=== PATIENT | female | born 1990 | race Caucasian/White ===

== ENCOUNTER 2021-02-11 17:04 | Inpatient (IN) ==
[2021-02-11] MEDS ORDERED: ONDANSETRON 4 MG/2 ML VIAL IV PRN (17:24)
[2021-02-11] MEDS ORDERED: LACTATED RINGERS 1,000 ML IV SCH (17:30)
[2021-02-11] MEDS: miSOPROStoL 200 MCG TABLET PO SCH ×3 (17:31→23:48)
[2021-02-11 18:14] LABS: Basophils # 0.1 10*3/uL (0.0-0.2); Basophils % 0.4 % (0.0-0.8); Eosinophils # 0.1 10*3/uL (0.0-0.87); Eosinophils % 0.6 % (0.00-10.9); Hematocrit 36.5 VOL% (35.7-47.0); Immature Granulocytes % 0.4 %; Immature Granulocytes Absolute 0.05 #; Lymphocytes # 1.8 10*3/uL (1.4-4.0); Lymphocytes % 15.3 % (21.3-54.2); Mean Corpuscular HGB Conc 32.9 GM/DL (32-36); Mean Corpuscular Volume 97.9 FL (87-102); Mean Platelet Volume 11.9 FL (9.6-12.0); Monocytes % 6.1 % (1.7-12.7); Neutrophils % 77.2 % (38.7-73.9); Platelet Count 281 T/CUMM (130-400); Red Blood Count 3.73 MC/CUMM (3.8-5.5); Red Cell Distribution Width 12.2 % (9.3-17.3)
[2021-02-11] MEDS ORDERED: BUTORPHANOL 2 MG/ML VIAL IV PRN (18:16)
[2021-02-11 18:30] LABS: Alanine Aminotransferase 13 U/L (13-56); Albumin 3.1 G/DL (3.4-5.0); Alkaline Phosphatase 53 U/L (45-117); Aspartate Amino Transferase 14 U/L (0-37); Bilirubin,Total < 0.39 MG/DL (0.20-1.00); Blood Urea Nitrogen 9 MG/DL (7-18); Calcium 8.2 MG/DL (8.5-10.1); Carbon Dioxide 24 MMOL/L (21-32); Estimated Glom Filtration Rate 130 ML/MIN; Glucose 87 MG/DL (74-106); Osmolality,Calculated 274.5 MOS/KG (273-304); Potassium 3.7 MMOL/L (3.5-5.1); Sodium 139 MMOL/L (136-145); Total Protein 6.6 G/DL (6.4-8.2)
[2021-02-12] MEDS: miSOPROStoL 200 MCG TABLET PO SCH ×4 (02:25→14:24)
[2021-02-12] MEDS ORDERED: OXYTOCIN/LR 20 UNIT/1,000 ML BAG IV ONE ×2 (03:30→21:13)
[2021-02-12] MEDS: MEPERIDINE 50 MG/1 ML VIAL IV PRN ×2 (07:47→18:33)
[2021-02-12] MEDS ORDERED: ONDANSETRON 4 MG/2 ML VIAL IV ONE (12:05)
[2021-02-12] MEDS ORDERED: PROMETHAZINE 25 MG/1 ML VIAL IM ONE (12:05)
[2021-02-12] MEDS ORDERED: hydrOXYzine HCL 25 MG/1 ML VIAL IM PRN (12:05)
[2021-02-12] MEDS ORDERED: ePHEDrine 50 MG/ML VIAL IV PRN (12:05)
[2021-02-12] MEDS ORDERED: NALOXONE 0.4 MG/ML VIAL IV PRN (12:05)
[2021-02-12] MEDS ORDERED: CITRIC ACID/SODIUM CITRATE 30 ML UDCUP PO ONE (12:05)
[2021-02-12] MEDS ORDERED: FAMOTIDINE 20 MG/2 ML VIAL IV ONE (12:05)
[2021-02-12] MEDS ORDERED: diphenhydrAMINE 50 MG/1 ML VIAL IV PRN ×2 (12:05)
[2021-02-12] MEDS ORDERED: LACTATED RINGERS 1,000 ML IV SCH ×2 (12:30→20:30)
[2021-02-12] MEDS ORDERED: fentaNYL 2 MCG/ROPIV 0.2% EPID 100 ML EPIDURAL SCH (12:30)
[2021-02-12 15:13] LABS: Bilirubin,Urine Negative (Negative); Blood, Urine Negative (Negative); Glucose,Urine (UA) Negative (Negative); Ketones,Urine 20 mg/dL (Negative); Nitrite,Urine Negative (Negative); Protein,Urine Negative; RBC,Urine 1 /HPF (0-4); Squamous Epithelial Cell,Urine Occasional /HPF (0-10); Urine Appearance CLEAR (Clear); Urine Color Straw (Yellow); Urine Specific Gravity 1.009 (1.001-1.035); Urine Urobilinogen < 2.0 EU/DL (0.2-1.0)
[2021-02-12] MEDS ORDERED: ONDANSETRON 4 MG/2 ML VIAL ONE (18:43)
[2021-02-12] MEDS ORDERED: LIDOCAINE MPF 2% /EPI 20 ML VIAL ONE (18:43)
[2021-02-12] MEDS ORDERED: DEXAMETHASONE 4 MG/1 ML VIAL ONE (18:45)
[2021-02-12] MEDS ORDERED: MIDAZOLAM 2 MG/2 ML VIAL ONE ×2 (19:16)
[2021-02-12] MEDS ORDERED: DEXMEDETOMIDINE 200 MCG/2 ML VIAL ONE (19:16)
[2021-02-12] MEDS ORDERED: fentaNYL 100 MCG/2 ML VIAL ONE (19:17)
[2021-02-12] MEDS ORDERED: LACTATED RINGERS 1,000 ML IV ONE ×2 (19:25→20:08)
[2021-02-12] MEDS ORDERED: ACETAMINOPHEN INJ 1,000 MG/100 ML VIAL IV ONE (19:28)
[2021-02-12] MEDS ORDERED: OXYTOCIN 10 UNIT/ML VIAL ONE (19:48)
[2021-02-12] MEDS ORDERED: METHYLERGONOVINE 0.2 MG/1 ML AMP ONE (19:48)
[2021-02-12] MEDS ORDERED: CARBOPROST TROMETHAMINE 250 MCG/ML AMP IM ONE (19:54)
[2021-02-12] MEDS ORDERED: ESTRADIOL 0.01% VAG CREAM 42.5 GM TUBE VAG ONE (19:55)
[2021-02-12] MEDS ORDERED: ONDANSETRON 4 MG/2 ML VIAL IV PRN (20:10)
[2021-02-12] MEDS ORDERED: MAGNESIUM HYDROXIDE SUSP 30 ML UDCUP PO PRN (20:10)
[2021-02-12] MEDS ORDERED: BENZOCAINE/MENTHOL LOZENGE 18/BOX PO PRN (20:10)
[2021-02-12] MEDS ORDERED: BISACODYL 10 MG SUPP RECTAL PRN (20:10)
[2021-02-12] MEDS ORDERED: IBUPROFEN 800 MG TABLET PO PRN (20:10)
[2021-02-12] MEDS ORDERED: DOCUSATE SODIUM 100 MG CAPSULE PO PRN (20:10)
[2021-02-12] MEDS ORDERED: ACETAMINOPHEN 325 MG TABLET PO PRN (20:10)
[2021-02-12] MEDS ORDERED: oxyCODONE/ACETAMINOPHEN 5-325 MG TABLET PO PRN (20:11)
[2021-02-12 21:00] VITALS: BP 115/55
[2021-02-12] MEDS ORDERED: SODIUM BICARBONATE 10 MEQ/10 ML SYRINGE IV ONE (22:14)
[2021-02-13 11:55] LABS: Toxoplasma IgG Value < 3 IU/mL
== END 2021-02-13 11:09 | disposition home or self-care (01) | DRG 818 ==
LOC: N.LD 17:04
PROVIDERS: ADMIT Obstetrics & Gynecology; ATTEND Obstetrics & Gynecology

== ENCOUNTER 2021-12-28 09:36 | Inpatient (IN) ==
[2021-12-28 10:26] LABS: Bacteria,Urine Many /HPF (Few); RBC,Urine 2 /HPF (0-4); Squamous Epithelial Cell,Urine Occasional /HPF (0-10)
[2021-12-28 10:27] LABS: Bilirubin,Urine Negative (Negative); Blood, Urine Negative (Negative); Glucose,Urine (UA) Negative (Negative); Ketones,Urine Negative (Negative); Nitrite,Urine Negative (Negative); Protein,Urine Negative (Negative); Urine Appearance Clear (Clear); Urine Color Yellow (Yellow); Urine Specific Gravity 1.015 (1.001-1.035); Urine Urobilinogen 0.2 eU/dL (<2.0)
[2021-12-28] MEDS: LACTATED RINGERS 1,000 ML IV SCH ×2 (13:13→21:15)
[2021-12-28] MEDS ORDERED: METHYLERGONOVINE 0.2 MG/1 ML AMP IM PRN (13:21)
[2021-12-28] MEDS ORDERED: OXYTOCIN/LR 20 UNIT/1,000 ML BAG IV ONE (13:21)
[2021-12-28] MEDS ORDERED: miSOPROStoL 200 MCG TABLET RECTAL PRN (13:21)
[2021-12-28] MEDS ORDERED: TRANEXAMIC ACID 1,000 MG in SODIUM CHLORIDE 0.9% 100 ML IV PRN (13:21)
[2021-12-28] MEDS ORDERED: CARBOPROST TROMETHAMINE 250 MCG/ML AMP IM PRN (13:21)
[2021-12-28] MEDS ORDERED: OXYTOCIN/LR 20 UNIT/1,000 ML BAG IV SCH (13:30)
[2021-12-28 13:44] LABS: Basophils % 0.2 % (0.0-0.8); Eosinophils % 0.2 % (0.00-10.9); Hematocrit 33.5 VOL% (35.7-47.0); Hemoglobin 11.3 GM/DL (12.0-16.0); Immature Granulocytes % 1.2 %; Immature Granulocytes Absolute 0.15 #; Lymphocytes # 1.8 10*3/uL (1.4-4.0); Lymphocytes % 13.4 % (21.3-54.2); Mean Corpuscular HGB Conc 33.7 GM/DL (32-36); Mean Corpuscular Volume 95.7 FL (87-102); Monocytes # 0.6 10*3/uL (0.11-0.8); Monocytes % 4.8 % (1.7-12.7); Neutrophils % 80.2 % (38.7-73.9); Platelet Count 220 T/CUMM (130-400); Red Cell Distribution Width 13.5 % (9.3-17.3)
[2021-12-28 13:59] LABS: Alanine Aminotransferase 21 U/L (13-56); Albumin 2.7 G/DL (3.4-5.0); Alkaline Phosphatase 118 U/L (45-117); Aspartate Amino Transferase 17 U/L (0-37); Bilirubin,Total < 0.39 MG/DL (0.20-1.00); Blood Urea Nitrogen 6 MG/DL (7-18); Calcium 8.5 MG/DL (8.5-10.1); Carbon Dioxide 20 MMOL/L (21-32); Chloride 110 MMOL/L (98-107); Glucose 77 MG/DL (74-106); Osmolality,Calculated 277.3 MOS/KG (273-304); Potassium 3.7 MMOL/L (3.5-5.1); Sodium 141 MMOL/L (136-145); Total Protein 6.6 G/DL (6.4-8.2)
[2021-12-28] MEDS ORDERED: buprenorphine HCL 0.3 MG/ML VIAL ONE (17:31)
[2021-12-28] MEDS ORDERED: BUPIVACAINE SPINAL 0.75% 2 ML AMP SPINAL ONE (17:31)
[2021-12-28] MEDS ORDERED: ONDANSETRON 4 MG/2 ML VIAL ONE (17:31)
[2021-12-28] MEDS ORDERED: PHENYLEPHRINE 1 MG/10 ML SYRINGE IV ONE (17:31)
[2021-12-28] MEDS: MEPERIDINE 50 MG/1 ML VIAL IV PRN (21:14)
[2021-12-28] MEDS: ONDANSETRON 4 MG/2 ML VIAL IV PRN (21:15)
[2021-12-28] MEDS ORDERED: BUTORPHANOL 2 MG/ML VIAL IV PRN (23:41)
[2021-12-28] MEDS ORDERED: BUTORPHANOL 1 MG/ML VIAL IV PRN (23:41)
[2021-12-29] MEDS: ONDANSETRON 4 MG/2 ML VIAL IV PRN (02:13)
[2021-12-29] MEDS: MEPERIDINE 50 MG/1 ML VIAL IV PRN (02:14)
[2021-12-29] MEDS ORDERED: CITRIC ACID/SODIUM CITRATE 30 ML UDCUP ONE (04:04)
[2021-12-29] MEDS ORDERED: FAMOTIDINE 20 MG/2 ML VIAL IV ONE ×2 (04:05→04:18)
[2021-12-29] MEDS ORDERED: fentaNYL 2 MCG/ROPIV 0.2% EPID 100 ML EPIDURAL ONE (04:16)
[2021-12-29] MEDS ORDERED: PROMETHAZINE 25 MG/1 ML VIAL IM PRN (04:17)
[2021-12-29] MEDS ORDERED: hydrOXYzine HCL 25 MG/1 ML VIAL IM PRN ×2 (04:17)
[2021-12-29] MEDS ORDERED: ePHEDrine 50 MG/ML VIAL IV PRN ×2 (04:17)
[2021-12-29] MEDS ORDERED: NALOXONE 0.4 MG/ML VIAL IV PRN ×2 (04:17)
[2021-12-29] MEDS ORDERED: diphenhydrAMINE 50 MG/1 ML VIAL IV PRN ×4 (04:17)
[2021-12-29] MEDS ORDERED: ONDANSETRON 4 MG/2 ML VIAL IV ONE (04:17)
[2021-12-29] MEDS ORDERED: PROMETHAZINE 25 MG/1 ML VIAL IM ONE (04:17)
[2021-12-29] MEDS ORDERED: CITRIC ACID/SODIUM CITRATE 30 ML UDCUP PO ONE (04:18)
[2021-12-29] MEDS ORDERED: fentaNYL 2 MCG/ROPIV 0.2% EPID 100 ML EPIDURAL SCH (04:30)
[2021-12-29] MEDS: LACTATED RINGERS 1,000 ML IV SCH ×2 (04:36→12:47)
[2021-12-29] MEDS: fentaNYL 2 MCG/ROPIV 0.2% EPID 100 ML EPIDURAL SCH ×2 (04:59→12:05)
[2021-12-29 06:12] LABS: Mucus,Urine Few /LPF (Occasional); RBC,Urine 11 /HPF (0-4); Squamous Epithelial Cell,Urine Occasional /HPF (0-10)
[2021-12-29 06:13] LABS: Urine Appearance Clear (Clear); Urine Color Yellow (Yellow)
[2021-12-29 06:14] LABS: Bilirubin,Urine Small mg/dL (Negative); Blood, Urine Trace mg/dL (Negative); Glucose,Urine (UA) Negative (Negative); Ketones,Urine >160 mg/dL (Negative); Nitrite,Urine Negative (Negative); Protein,Urine Negative (Negative); Urine Specific Gravity 1.025 (1.001-1.035); Urine Urobilinogen 0.2 eU/dL (<2.0)
[2021-12-29] MEDS ORDERED: ceFAZolin 2,000 MG/50 ML DUPLEX IV ONE (10:20)
[2021-12-29] MEDS ORDERED: fentaNYL 100 MCG/2 ML VIAL ONE (11:11)
[2021-12-29] MEDS ORDERED: ONDANSETRON 4 MG/2 ML VIAL ONE (12:27)
[2021-12-29] MEDS ORDERED: LIDOCAINE MPF 2% /EPI 20 ML VIAL ONE (12:27)
[2021-12-29] MEDS ORDERED: OXYTOCIN/LR 20 UNIT/1,000 ML BAG IV ONE ×2 (13:04→14:16)
[2021-12-29] MEDS ORDERED: SODIUM CHLORIDE 0.9% 0 ML IV ONE (13:04)
[2021-12-29] MEDS ORDERED: TRANEXAMIC ACID 1,000 MG/10 ML VIAL ONE (13:04)
[2021-12-29] MEDS ORDERED: miSOPROStoL 200 MCG TABLET ONE (13:04)
[2021-12-29] MEDS ORDERED: METHYLERGONOVINE 0.2 MG/1 ML AMP ONE (13:04)
[2021-12-29] MEDS ORDERED: CARBOPROST TROMETHAMINE 250 MCG/ML AMP IM ONE (13:04)
[2021-12-29] MEDS ORDERED: KETOROLAC 30 MG/1 ML VIAL ONE (13:32)
[2021-12-29] MEDS ORDERED: buprenorphine HCL 0.3 MG/ML VIAL ONE (13:37)
[2021-12-29 13:49] LABS: Cord Venous Blood HCO3 22.5 MMOL/L; Cord Venous Blood PCO2 38.7 MMHG; Cord Venous Blood PO2 37.9
[2021-12-29] MEDS ORDERED: PHENYLEPHRINE 1 MG/10 ML SYRINGE IV ONE (14:05)
[2021-12-29] MEDS ORDERED: ACETAMINOPHEN 325 MG TABLET PO PRN (14:16)
[2021-12-29] MEDS ORDERED: MAGNESIUM HYDROXIDE SUSP 30 ML UDCUP PO PRN (14:16)
[2021-12-29] MEDS ORDERED: SIMETHICONE CHEW 80 MG TABLET PO PRN (14:16)
[2021-12-29] MEDS ORDERED: RHO(D) IMMUNE GLOBULIN 300 MCG SYRINGE IM ONE (14:16)
[2021-12-29] MEDS ORDERED: ONDANSETRON 4 MG/2 ML VIAL IV PRN (14:16)
[2021-12-29] MEDS ORDERED: LACTATED RINGERS 1,000 ML IV SCH (14:30)
[2021-12-29] MEDS: oxyCODONE/ACETAMINOPHEN 5-325 MG TABLET PO PRN (18:21)
[2021-12-29] MEDS: DOCUSATE SODIUM 100 MG CAPSULE PO SCH (21:18)
[2021-12-29] MEDS: KETOROLAC 30 MG/1 ML VIAL IV SCH (21:19)
[2021-12-30] MEDS: KETOROLAC 30 MG/1 ML VIAL IV SCH ×2 (02:05→08:27)
[2021-12-30] MEDS: ACETAMINOPHEN 500 MG TABLET PO SCH ×2 (02:06→05:09)
[2021-12-30 05:13] LABS: Basophils # 0.1 10*3/uL (0.0-0.2); Basophils % 0.5 % (0.0-0.8); Eosinophils # 0.1 10*3/uL (0.0-0.87); Eosinophils % 0.7 % (0.00-10.9); Hematocrit 28.5 VOL% (35.7-47.0); Hemoglobin 9.2 GM/DL (12.0-16.0); Immature Granulocytes % 0.8 %; Immature Granulocytes Absolute 0.08 #; Lymphocytes # 1.9 10*3/uL (1.4-4.0); Lymphocytes % 19.6 % (21.3-54.2); Mean Corpuscular HGB Conc 32.3 GM/DL (32-36); Mean Corpuscular Volume 100.4 FL (87-102); Mean Platelet Volume 12.1 FL (9.6-12.0); Monocytes # 0.8 10*3/uL (0.11-0.8); Monocytes % 7.8 % (1.7-12.7); Neutrophils % 70.6 % (38.7-73.9); Platelet Count 176 T/CUMM (130-400); Red Blood Count 2.84 MC/CUMM (3.8-5.5); Red Cell Distribution Width 13.7 % (9.3-17.3); White Blood Count 9.6 T/CUMM (4-12)
[2021-12-30] MEDS: oxyCODONE/ACETAMINOPHEN 5-325 MG TABLET PO PRN ×3 (05:21→20:11)
[2021-12-30] MEDS: MULTIVITAMIN (PRENATAL) TABLET PO SCH (08:27)
[2021-12-30] MEDS: DOCUSATE SODIUM 100 MG CAPSULE PO SCH ×2 (08:28→21:00)
[2021-12-30] MEDS: IBUPROFEN 800 MG TABLET PO PRN (23:31)
[2021-12-31] MEDS: IBUPROFEN 800 MG TABLET PO PRN ×3 (06:55→22:04)
[2021-12-31] MEDS: DOCUSATE SODIUM 100 MG CAPSULE PO SCH ×2 (10:14→21:58)
[2021-12-31] MEDS: MULTIVITAMIN (PRENATAL) TABLET PO SCH (10:15)
[2022-01-01] MEDS: DOCUSATE SODIUM 100 MG CAPSULE PO SCH (08:37)
[2022-01-01] MEDS: MULTIVITAMIN (PRENATAL) TABLET PO SCH (08:37)
[2022-01-01] MEDS: IBUPROFEN 800 MG TABLET PO PRN (08:38)
[2022-01-01 09:31] VITALS: BP 123/74
== END 2022-01-01 14:20 | disposition home or self-care (01) | DRG 788 ==
LOC: N.LDOUT 09:36 → N.LD 09:39 → N.OB 12-29 17:15
PROVIDERS: ADMIT Obstetrics & Gynecology; ATTEND Obstetrics & Gynecology
PROC: LDCSECT (ICD-10-PCS; 2021-12-29 13:00)